=== PATIENT | female | born 1995 | race Caucasian/White ===

== ENCOUNTER 2016-10-02 21:13 | Emergency (ER) | payer BC ==
[2016-10-02 21:47] LABS: URINE RBC NONE SEEN (0-5/hpf)
[2016-10-02 21:58] LABS: URINE APPEARANCE CLEAR; URINE COLOR YELLOW; URINE LEUKOCYTE ESTERASE NEGATIVE (NEGATIVE); URINE NITRITE NEGATIVE (NEGATIVE); URINE PH 5.5 (5-7); URINE PROTEIN 300mg/dL (3+) (NEG - TRACE); URINE SPECIFIC GRAVITY > OR = 1.030 (0.001-1.035)
[2016-10-02 21:59] LABS: URINE BACTERIA NONE SEEN (<10/hpf); URINE BILIRUBIN 0.5 mg/100ml (1+) (NEGATIVE); URINE BLOOD NEGATIVE (NEGATIVE); URINE GLUCOSE NORMAL (NEGATIVE); URINE KETONE 50mg/dL (2+) (NEGATIVE); URINE MUCUS UP TO 25%/lpf (Up to 25%); URINE UROBILINOGEN NORMAL (NEG-1mg/dL); URINE WBC 0-4/hpf (0-4/hpf)
[2016-10-02] MEDS ORDERED: ONDANSETRON HCL 4 MG/2 ML VIAL ONE (22:00)
[2016-10-02] MEDS ORDERED: NORMAL SALINE 2,000 ML IV ONE (22:01)
[2016-10-02] MEDS ORDERED: ONDANSETRON ODT 4 MG TAB.RAPDIS ONE (23:00)
--- NOTE | 2016-10-02 23:25 | ER PHYSICIAN DOCUMENTATION ---
Physician Documentation [facility] Name:Jackelyn Bruce Age:21 yrs Sex:Female :1995 Arrival Date:10/02/2016 Time:21:13 Bed3 Private MD: Gio Mckeon Disposition: 10/02/16 22:36 Discharged to Home/Self Care. Impression: Vomiting - Dehydration. - Condition is Good. - Discharge Instructions: DEHYDRATION (5y-Adult), VOMITING (6y-Adult). - Prescriptions for Zofran 4 mg Oral - take 1 tablet by ORAL route every 6 hours .; 20 tablet. - Medical Reconciliation form form. - Follow up: Private Physician; When: 7 - 10 days; Reason: Recheck today's complaints, Continuance of care. - Problem is new. - Symptoms are resolved. - Notes: Take Zofran 4mg under your tongue every 6 hours as needed for nausea or vomiting... Drink 2 - 3 quarts of water or Gatorade every day... Rest tomorrow...no higher elevation...no exercise.... Historical: - Allergies: No known drug Allergies; - Home Meds: 1. BuSpar Oral daily for anxiety 2. Lexapro 10 mg oral tab 1 tab once daily for Depression associated with Manic Depressive Disorder - PMHx: leiden factor V; DEPRESSION; ANXIETY; - PSHx: Tonsillectomy; Appendectomy; - Tetanus: < 10 years. - Ebola Screening: : Patient negative for fever greater than or equal to 101.5 degrees Fahrenheit, and additional compatible Ebola Virus Disease symptoms. Patient denies exposure to infectious person. Patient denies travel to an Ebola-affected area in the 21 days before illness onset. No symptoms or risks identified at this time. . - Immunization history: Flu Vaccine < 1 year. - Social history: Smoking status: Patient states was never smoker of tobacco. Patient uses alcohol occasionally. Patient/guardian denies using street drugs. Vital Signs: 10/02 21:33 BP 127 / 65; Pulse 69; Resp 15; Temp 98.3; Pulse Ox 95% on R/A; Weight 53.52 kg; Height mk2 5 ft. 7 in. (170.18 cm); Pain 0/10; 23:23 BP 122 / 61; Pulse 70; Resp 14; Pulse Ox 95% on R/A; Pain 0/10; mk2 21:33 Body Mass Index 18.48 (53.52 kg, 170.18 cm) mk2 MDM: 21:51 Patient medically screened. 10/02 22:00 Order name: HCG, URINE; Complete Time: 22:35 EDMS 10/02 22:34 Interpretation: Normal. 10/02 22:00 Order name: UA W/ MICRO -CULTURE IF IND; Complete Time: 22:35 EDMS 10/02 22:35 Interpretation: Normal Except: URINE SPECIFIC GRAVITY > OR = 1.030; URINE KETONE cd 50mg/dL (2+); Dehydration. Dispensed Medications: 22:00 Drug: NS 0.9% 1000 ml; Route: IV; Rate: bolus; Site: left antecubital; mk2 22:53 Follow up: IV Status: Completed infusion; IV Intake: 1000ml mk2 22:00 Drug: Zofran 4 mg; Route: IVP; Infused Over: 2 mins; Site: left antecubital; mk2 22:10 Follow up: Response: No adverse reaction mk2 22:55 CANCELLED (Other Intervention Used): Zofran 1 tablet PO every 4 hours; 4mg ODT Q4-6H mk2 prn N/V (Disp.#4) 22:55 Drug: Zofran 4 mg; Route: PO; mk2 22:55 Follow up: Response: Pharmacy closed - take home med pack mk2 22:56 Drug: NS 0.9% 1000 ml; Route: IV; Rate: bolus; Site: left antecubital; mk2 23:23 Follow up: IV Status: Completed infusion; IV Intake: 1000ml mk2 Signatures: Gio Huang MD MD cd Kruger, Meg, RN RN 2
--- NOTE | 2016-10-02 23:25 | ER NURSING DOCUMENTATION ---
Nurse's Notes [facility] Name:Jackelyn Bruce Age:21 yrs Sex:Female :1995 Arrival Date:10/02/2016 Time:21:13 Bed3 Private MD: Diagnosis:Vomiting - Dehydration Presentation: 10/02 21:18 Acuity: JELANI 3 lb 21:25 Presenting complaint: Patient states: I've been having random vomiting and nausea for 3 mk2 days. Transition of care: Home. 21:25 Method Of Arrival: Walk In [facility] Triage Assessment: 21:33 General: Appears in no apparent distress, Behavior is cooperative, pleasant. Pain: mk2 Denies pain. Neuro: No deficits noted. Cardiovascular: No deficits noted. Respiratory: Breath sounds are clear bilaterally. GI: Reports nausea, vomiting, since 3 days. Derm: No deficits noted. Historical: - Allergies: No known drug Allergies; - Home Meds: 1. BuSpar Oral daily for anxiety 2. Lexapro 10 mg oral tab 1 tab once daily for Depression associated with Manic Depressive Disorder - PMHx: leiden factor V; DEPRESSION; ANXIETY; - PSHx: Tonsillectomy; Appendectomy; - Tetanus: < 10 years. - Ebola Screening: : Patient negative for fever greater than or equal to 101.5 degrees Fahrenheit, and additional compatible Ebola Virus Disease symptoms. Patient denies exposure to infectious person. Patient denies travel to an Ebola-affected area in the 21 days before illness onset. No symptoms or risks identified at this time. . - Immunization history: Flu Vaccine < 1 year. - Social history: Smoking status: Patient states was never smoker of tobacco. Patient uses alcohol occasionally. Patient/guardian denies using street drugs. Screenin:34 Infectious Disease Risk None. Abuse screen: Denies threats or abuse. Nutritional mk2 screening: No deficits noted. Assessment: 21:34 See Triage Assessment done by same RN. 2 23:24 GI: Abdomen is flat, non- distended. mk2 Vital Signs: 21:33 BP 127 / 65; Pulse 69; Resp 15; Temp 98.3; Pulse Ox 95% on R/A; Weight 53.52 kg; Height mk2 5 ft. 7 in. (170.18 cm); Pain 0/10; 23:23 BP 122 / 61; Pulse 70; Resp 14; Pulse Ox 95% on R/A; Pain 0/10; mk2 21:33 Body Mass Index 18.48 (53.52 kg, 170.18 cm) mk2 ED Course: 21:15 Patient arrived in ED. jl 21:19 Triage completed. lb 21:25 Sisi Joyner, RN is Primary Nurse. mk2 21:34 Arm band placed on Bed in low position Call Light in Reach Gowned HOB Elevated Side mk2 rails up x1. 21:37 Valuables Remains with patient. Warm blanket given. mk2 21:38 Urine collected. Clean catch specimen. mk2 21:51 Gio Huang MD is Attending Physician. cd 22:00 Inserted peripheral IV: 20 gauge in left antecubital area and blood collected. mk2 Administered Medications: 22:00 Drug: NS 0.9% 1000 ml; Route: IV; Rate: bolus; Site: left antecubital; mk2 22:53 Follow up: IV Status: Completed infusion; IV Intake: 1000ml mk2 22:00 Drug: Zofran 4 mg; Route: IVP; Infused Over: 2 mins; Site: left antecubital; mk2 22:10 Follow up: Response: No adverse reaction mk2 22:55 CANCELLED (Other Intervention Used): Zofran 1 tablet PO every 4 hours; 4mg ODT Q4-6H mk2 prn N/V (Disp.#4) 22:55 Drug: Zofran 4 mg; Route: PO; mk2 22:55 Follow up: Response: Pharmacy closed - take home med pack mk2 22:56 Drug: NS 0.9% 1000 ml; Route: IV; Rate: bolus; Site: left antecubital; mk2 23:23 Follow up: IV Status: Completed infusion; IV Intake: 1000ml mk2 Intake: 22:53 IV: 1000ml; Total: 1000ml. mk2 23:23 IV: 1000ml; Total: 2000ml. mk2 Outcome: 22:36 Discharge ordered by . cd 23:23 Discharged to home ambulatory. mk2 23:23 Condition: good 23:23 Discharge Assessment: Patient awake, alert and oriented x 3. No cognitive and/or functional deficits noted. Patient verbalized understanding of disposition instructions. 23:23 Discharge instructions given to patient, Instructed on discharge instructions, follow up and referral plans. medication usage, Prescriptions given X 1. 23:23 IV D/Stephen 23:24 Patient left the ED. mk2 10/03 14:48 Discharge F/U Call: Unable to reach: no answer st Signatures: Ashley Alonso, RN RN Gio Restrepo MD MD cd Kruger, Meg, RN RN mk2 Sofy Arceo Jeff jl
== END 2016-10-02 23:25 | disposition home or self-care (01) ==
LOC: ER 21:13
DX: E86.0 Dehydration (principal); R11.2 Nausea with vomiting, unspecified; Z79.899 Other long term (current) drug therapy
CPT/HCPCS: 81001; 84703; 96361; 96374; 99284; J2405; J7030